=== PATIENT | male | born 1940 | race Caucasian/White ===

== ENCOUNTER 2022-01-23 14:12 | Emergency (ER) | payer MEDICARE ==
[~2022-01-23] VITALS: Ht 172.7 cm; Wt 54.4 kg
--- NOTE | 2022-01-23 14:22 | NUR ---
Dr Fofana at the bedside for MSE.
[2022-01-23] MEDS ORDERED: LORAZEPAM 2 MG/1 ML VIAL IM ONE (14:30)
[2022-01-23] MEDS ORDERED: VITAMIN B 12 (14:38)
[2022-01-23] MEDS ORDERED: QUET25TA PO (14:38)
[2022-01-23] MEDS ORDERED: ABH GEL TP (14:38)
[2022-01-23] MEDS ORDERED: ASPI81TA31 PO (14:38)
[2022-01-23] MEDS ORDERED: LORA-258 PO (14:38)
[2022-01-23] MEDS ORDERED: QUET50TA PO (14:38)
[2022-01-23] MEDS ORDERED: GABA-532 PO (14:38)
[2022-01-23] MEDS ORDERED: VITAMIN D PO (14:38)
[2022-01-23] MEDS ORDERED: ATOR20TA PO (14:38)
[2022-01-23] MEDS ORDERED: CYAN100T44 PO (14:38)
[2022-01-23 14:47] LABS: *BILIRUBIN,URIN NEGATIVE (NEGATIVE); *BLOOD, URINE NEGATIVE (NEGATIVE); *CLARITY,URINE CLEAR (CLEAR); *COLOR,URINE YELLOW (YELLOW); *KETONES,URINE NEGATIVE (NEGATIVE); LEUKOCYTE ESTERASE ,URINE NEGATIVE (NEGATIVE); NITRITE, URINE NEGATIVE (NEGATIVE); PH,URINE 6.5 (5.0-8.0); UGLUCOSE NEGATIVE (NEGATIVE)
[2022-01-23] MEDS ORDERED: LORAZEPAM 2 MG/1 ML VIAL ONE (14:51)
[2022-01-23 14:59] LABS: *AMPHETAMINE, URINE NEGATIVE (NEGATIVE); *CANNABINOID, URINE NEGATIVE (NEGATIVE); *COCCAINE, URINE NEGATIVE (NEGATIVE); *OPIATE, URINE NEGATIVE (NEGATIVE); *PHENCYCLIDINE SCREEN,URINE NEGATIVE (NEGATIVE)
[2022-01-23 15:01] LABS: CARBON DIOXIDE 27 mmol/L (21-32); CHLORIDE 105 mmol/L (98-107); CREATININE 1.1 mg/dL (0.6-1.3); GLUCOSE 121 mg/dL (74-106); POTASSIUM 4.2 mmol/L (3.5-5.1); UREA NITROGEN, BLOOD 21 mg/dL (7-18)
[2022-01-23 15:09] LABS: ETHANOL < 3 MG/DL (0-0)
[2022-01-23 15:17] LABS: ALANINE AMINOTRANSFERASE 35 U/L (16-63); ALKALINE PHOSPHATASE 86 U/L (50-136); ASPARTATE AMINOTRANSFERASE 19 U/L (15-37); BILIRUBIN,DIRECT 0.2 mg/dL (0.0-0.2); BILIRUBIN,TOTAL 0.7 mg/dL (0.2-1.0); TOTAL PROTEIN, SERUM 6.7 g/dL (6.4-8.2)
--- NOTE | 2022-01-23 15:22 | NUR ---
Called code [facility]roll.
--- NOTE | 2022-01-23 15:22 | NUR ---
Pt attempted to leave room and started pushing son and staff. Dr Fofana aware, orders recieved.
[2022-01-23 15:24] LABS: ACETAMINOPHEN < 2.0 ug/mL (10-30); THYROID STIMULATING HORMONE 0.415 mIU/mL (0.358-3.740)
[2022-01-23 15:29] LABS: HEMATOCRIT 40.3 % (36.7-47.1); MEAN CORPUSCULAR HEMOGLOBIN 32.8 uug (23.8-33.4); MEAN CORPUSCULAR VOLUME 97.3 fL (73.0-96.2); PLATELET COUNT (AUTO) 149 K/uL (152-348)
[2022-01-23] MEDS ORDERED: ZIPRASIDONE MESYLATE 20 MG VIAL IM ONE ×2 (15:30→15:32)
--- NOTE | 2022-01-23 15:43 | NUR ---
Pt back in bed, since he appeared to be drowsy.
--- NOTE | 2022-01-23 15:55 | NUR ---
Placed a phone call to [facility], for psych eval, awaiting call back.
--- NOTE | 2022-01-23 16:00 | NUR ---
Pt is in bed, but still restless, pt's son at the bedside.
--- NOTE | 2022-01-23 16:08 | NUR ---
Left a second message for Delfina Loredo [employer].
--- NOTE | 2022-01-23 16:29 | NUR ---
Patient is resting comfortably in bed with eyes closed, NAD noted. NAD noted.
--- NOTE | 2022-01-23 16:48 | NUR ---
Delfina from [facility] spoke to LOUANN Michael shortly.
--- NOTE | 2022-01-23 18:00 | NUR ---
Delfina from [facility] in for pt's psych evaluation.
--- NOTE | 2022-01-23 18:32 | NUR ---
Called multiole ambulance companies for BLS, only one available at [facility] and pickup time is 2200. Placed a call to Alejo jennings [facility] @ [phone], but the nurse requested to have report given to assistant casino shift manager.
--- NOTE | 2022-01-23 19:10 | NUR ---
PATIENT SLEEPING ON GURNY IN ROOM 3 WITH NO DISTRESS NOTED. 1:1 SITTER OBSERVING PATIENT.
--- NOTE | 2022-01-23 21:51 | NUR ---
Gave SBAR report to Ashutosh georges [place] [facility] [place].
--- NOTE | 2022-01-23 22:49 | NUR ---
Gave SBAR report [facility] ambulance unit [facility] who will transport patient to [facility].
== END 2022-01-23 22:52 ==
LOC: ER 14:16
DX: F03.90 Unspecified dementia, unspecified severity, without behavioral disturbance, psychotic disturbance, mood disturbance, and anxiety (principal); F28 Other psychotic disorder not due to a substance or known physiological condition; U07.1 COVID-19; Z79.82 Long term (current) use of aspirin; Z79.899 Other long term (current) drug therapy; D69.6 Thrombocytopenia, unspecified; I70.0 Atherosclerosis of aorta; Z82.49 Family history of ischemic heart disease and other diseases of the circulatory system
CPT/HCPCS: 36415; 71045; 80048; 80076; 80299; 80307; 80320; 81001; 84443; 84484; 85025; 87086; 87426; 93005; 96372 ×2; 99285; J2060; J3486; A4663; G0480